=== PATIENT | female | born 1990 | race Hispanic/Latino ===

== ENCOUNTER 2016-12-04 19:43 | Emergency (ER) | payer BC, OTHER ==
[~2016-12-04] VITALS: Ht 154.9 cm; Wt 58.1 kg
[~2016-12-04 19:43] MED LIST: DOXY100C42 PO; HYDR-1231 PO; HYDR1TAB PO; METH4TAB PO; NITR-65 PO; OMEP-10 PO; PHEN200T27 PO; PNT40TEC PO; SCR1T1 PO; SULF-222 PO; TRAM50TA2 PO
[2016-12-04] MEDS ORDERED: ONDA4TAB11 (20:10)
[2016-12-04] MEDS ORDERED: NEXIUM (20:10)
[2016-12-04 20:18] LABS: BILIRUBIN,URINE NEGATIVE (NEGATIVE); KETONES,URINE NEGATIVE (NEGATIVE); LEUKOCYTE ESTERASE ,URINE NEGATIVE (NEGATIVE); NITRITE,URINE NEGATIVE (NEGATIVE); PH,URINE 6 (5-9); PROTEIN,URINE NEGATIVE (NEGATIVE); UROBILINOGEN,URINE NORMAL (NORMAL)
--- NOTE | 2016-12-04 20:19 | ED Abdominal Pain ---
General Chief Complaint: Abdominal/GI Problems Stated Complaint: ABD PAIN Nursing Triage Note: AWOKE THIS AM NAUSEATED AND THEN VOMITED, ABD PAIN STARTED AFTER THIS. PAIN IN UPPER EPIGASTRIC AND AND EXTENDS TO LUQ. SAW DR KC THIS AM, RX ZOFRAN AND F/U FRIDAY. PT TRIED TO EAT AND DRINK AND SX RESUMED Sepsis Screen: No Definite Risk Source of Information: Patient Exam Limitations: No Limitations History of Present Illness Time Seen By Provider: 20:19 Initial Comments 26 yo female patient presents to the ED with c/o nausea and vomiting beginning this AM. Does c/o epigastric pain radiating to the LUQ. Patient was seen by Dr. Kc earlier this a.m. and was given Zofran. Follow-up with Dr. Dr. Kc scheduled for Friday. Patient reports today no improvement in symptoms with Zofran. Denies taking Tylenol or ibuprofen at home. Unable to keep anything down today. Timing/Duration: 12 Hours Severity/Quality: Aching, Cramping Location: Epigastric Radiation: LUQ Activities at Onset: None Modifying Factors: Worsens With Eating, Worsens With Movement, Worsens With Palpation Allergies and Home Medications Allergies Coded Allergies: No Known Drug Allergies (Unverified , 05/05/13) Home Medications (Reported) Famotidine 20 Mg Tablet #20 20 MG PO BID PRN PRN NAUSEA/VOMITING Prescribed by: INOCENCIO CHI on 12/04/162118 Ondansetron 4 Mg Tab.rapdis #15 (Reported) Tramadol HCl 50 Mg Tablet #14 50 MG PO Q4H PRN PRN PAIN Prescribed by: INOCENCIO CHI on 12/04/162126 Review of Systems Constitutional: No diaphoresis, No dizziness, No fever, malaise EENTM: No Symptoms Reported Respiratory: Denies Cough, Denies Shortness of Air Cardiovascular: No Symptoms Reported Gastrointestinal: See HPIDenies Abdomen Distended, Abdominal PainDenies Blood Streaked Stools, Denies Constipated, Denies Diarrhea, Nausea Poor Appetite Poor Fluid IntakeDenies Rectal Bleeding, Vomiting Genitourinary: Denies Burning, Denies Discharge, Denies Frequency, Denies Flank Pain, Denies Hematuria, Denies Pain Musculoskeletal: no symptoms reported Skin: no symptoms reported Psychiatric/Neurological: No Symptoms Reported All Other Systems Reviewed Negative Unless Noted: Yes (Negative excepted noted.) Past Imwqmpf-Dgtvsw-Ailxgs Hx Patient Social History Alcohol Use: Denies Use Recreational Drug Use: No Smoking Status: Never a Smoker 2nd Hand Smoke Exposure: No Recent Foreign Travel: No Contact w/Someone Who Travel: No Recent Infectious Disease Expo: No Recent Hopitalizations: No Seasonal Allergies Seasonal Allergies: No Surgeries HX Surgeries: Yes (CYST REMOVED FROM BREAST, CYST REMOVED FROM ARM) Surgeries: Gallbladder, Orthopedic Respiratory Hx Respiratory Disorders: No Cardiovascular Hx Cardiac Disorders: No Neurological Hx Neurological Disorders: Yes Neurological Disorders: Headaches /Migraines Reproductive System : No Hx Reproductive Disorders: No Sexually Transmitted Disease: No Female Reproductive Disorders: Denies Genitourinary Hx Genitourinary Disorders: No Gastrointestinal Hx Gastrointestinal Disorders: Yes Gastrointestinal Disorders: Gastroesophageal Reflux Musculoskeletal Hx Musculoskeletal Disorders: No Endocrine Hx Endocrine Disorders: No HEENT HX ENT Disorders: No Cancer Hx Cancer: No Psychosocial Hx Psychiatric Problems: No Integumentary HX Skin/Integumentary Disorder: No Blood Transfusions Hx Blood Disorders: No Reviewed Nursing Assessment Reviewed/Agree w Nursing PMH: Yes Family Medical History Significant Family History: No Pertinent Family Hx Physical Exam Vital Signs VS - Last 72 Hours, by Label 12/04/16 12/04/16 12/04/16 19:50 21:38 22:00 Temp 98.8 98.8 98.8 Pulse 102 80 Resp 20 20 B/P 104/65 Pulse Ox 99 96 O2 Delivery Room Air Capillary Refill : Less Than 3 Seconds General Appearance: WD/WN no apparent distress HEENT: PERRL/EOMI pharynx normal Neck: supple normal inspection Respiratory: lungs clear normal breath sounds no respiratory distress Cardiovascular: no murmur tachycardia Gastrointestinal: normal bowel sounds soft no organomegalyNo distended, guarding (LUQ)No rebound, tenderness (epigastric and LUQ.) Extremities: normal inspection normal capillary refill Back: normal inspection no CVA tenderness Neurologic/Psychiatric: alert normal mood/affect oriented x 3 Skin: normal color warm/dry Progress/Results/Core Measures Results/Orders Lab Results Laboratory Tests Test 12/04/16 20:05 12/04/16 20:44 Range/Units Urine Bacteria TRACE /HPF Urine Bilirubin NEGATIVE NEGATIVE Urine Casts NONE /LPF Urine Clarity CLEAR Urine Color YELLOW Urine Crystals NONE /LPF Urine Culture Indicated NO Urine Glucose (UA) NEGATIVE NEGATIVE Urine Ketones NEGATIVE NEGATIVE Urine Leukocyte Esterase NEGATIVE NEGATIVE Urine Mucus NEGATIVE /LPF Urine Nitrite NEGATIVE NEGATIVE Urine Protein NEGATIVE NEGATIVE Urine RBC NONE /HPF Urine RBC (Auto) NEGATIVE NEGATIVE Urine Specific Lamar 1.015 L 1.016-1.022 Urine Squamous Epithelial Cells 10-25 H /HPF Urine Urobilinogen NORMAL NORMAL MG/DL Urine WBC 0-2 /HPF Urine pH 6 5-9 Alanine Aminotransferase (ALT/SGPT) 37 0-55 U/L Albumin 4.1 3.2-4.5 G/DL Alkaline Phosphatase 67 40-136 U/L Anion Gap 10 5-14 MMOL/L Aspartate Amino Transf (AST/SGOT) 30 5-34 U/L BUN/Creatinine Ratio 8 Basophils # (Auto) 0.0 0.0-0.1 10^3/uL Basophils (%) (Auto) 0 0-10 % Blood Urea Nitrogen 6 L 7-18 MG/DL Calcium Level 8.3 L 8.5-10.1 MG/DL Carbon Dioxide Level 24 21-32 MMOL/L Chloride Level 104 98-107 MMOL/L Creatinine 0.72 0.60-1.30 MG/DL Eosinophils # (Auto) 0.0 0.0-0.3 10^3/uL Eosinophils (%) (Auto) 1 0-10 % Estimat Glomerular Filtration Rate > 60 Glucose Level 92 70-105 MG/DL Hematocrit 41 35-52 % Hemoglobin 13.8 11.5-16.0 G/DL Lipase 19 8-78 U/L Lymphocytes # (Auto) 0.6 L 1.0-4.0 X 10^3 Lymphocytes (%) (Auto) 10 L 12-44 % Mean Corpuscular Hemoglobin 30 25-34 PG Mean Corpuscular Hemoglobin Concent 34 32-36 G/DL Mean Corpuscular Volume 90 80-99 FL Mean Platelet Volume 10.2 7.4-10.4 FL Monocytes # (Auto) 0.3 0.0-1.0 X 10^3 Monocytes (%) (Auto) 6 0-12 % Neutrophils # (Auto) 4.9 1.8-7.8 X 10^3 Neutrophils (%) (Auto) 83 H 42-75 % Platelet Count 226 130-400 10^3/uL Potassium Level 4.2 3.6-5.0 MMOL/L Red Blood Count 4.55 4.35-5.85 10^6/uL Red Cell Distribution Width 12.3 10.0-14.5 % Sodium Level 138 135-145 MMOL/L Total Bilirubin 0.4 0.1-1.0 MG/DL Total Protein 7.1 6.4-8.2 G/DL White Blood Count 5.9 4.3-11.0 10^3/uL My Orders Orders-INOCENCIO CHI Urine Bedside (12/04/16 20:12) Ua Culture If Indicated (12/04/16 20:12) Saline Lock/Iv-Start (12/04/16 20:12) Saline Lock/Iv-Start (12/04/16 20:24) Cbc With Automated Diff (12/04/16 20:24) Comprehensive Metabolic Panel (12/04/16 20:24) Lipase (12/04/16 20:24) Ondansetron Injection (Zofran Injectio (12/04/16 20:30) Ketorolac Injection (Toradol Injection) (12/04/16 20:24) Ns Iv 1000 Ml (Sodium Chloride 0.9%) (12/04/16 20:24) Fentanyl Injection (Sublimaze Injection (12/04/16 21:27) Medications Given in ED Vital Signs/I&O Vital Sign - Last 12Hours 12/04/16 12/04/16 12/04/16 19:50 21:38 22:00 Temp 98.8 98.8 98.8 Pulse 102 80 Resp 20 20 B/P 104/65 Pulse Ox 99 96 O2 Delivery Room Air Blood Pressure Mean: 78 Departure Communication Progress Notes 2114 all laboratory findings discussed with the patient. Patient reports she is feeling much better after medications and IV fluids given in the emergency department. Abdomen shows improved tenderness, nondistended, positive bowel sounds. Patient is alert and oriented 3, no acute distress. Patient does not wish to have any further testing done in the emergency department at this time and wishes to follow-up with her primary care physician on Friday as previously scheduled. Plan for discharge to home with follow-up as an outpatient with her primary care physician as previously scheduled. This examiner notified by nursing staff that patient had increased pain with the fentanyl. Upon this examiner entering the room patient reports increased epigastric pain and "feels like a cramp". After approximately 2-3 minutes pain resolves. Patient wishes to proceed with discharge to home. Dr. Jarad Kilpatrick notified of this. Impression Impression: Primary Impression: Abdominal pain Qualified Code: R10.13 - Epigastric pain Additional Impression: Nausea & vomiting Qualified Code: R11.2 - Nausea with vomiting, unspecified Disposition: HOME, SELF-CARE Condition: Improved Departure-Patient Inst. Decision time for Depature: 21:19 Referrals: SAULO KC DO (PCP/Family) Primary Care Physician Patient Instructions: Acute Abdomen (Belly Pain), Adult (DC), Nausea and Vomiting, Adult (DC) Add. Discharge Instructions: All discharge instructions reviewed with patient and/or family. Voiced understanding. Continue Zofran as instructed. Tylenol extra strength over-the- counter as directed for pain. Ibuprofen 600 mg by mouth every 8 hours as needed for pain. Clear liquid diet until symptoms improve, then increase diet slowly to a low-fat, bland diet. Follow-up with Dr. Kc for recheck as previously scheduled. Return to the emergency department for worsened pain, vomiting, vomiting blood, black stools, rectal bleeding, or any other concerns. Scripts Tramadol HCl 50 Mg [id number] Mg PO Q4H PRN PAIN #14 TAB Ref 0 Prov:INOCENCIO CHI 12/04/16 Famotidine (Pepcid)20 Mg [id number] Mg PO BID PRN NAUSEA/VOMITING #20 TAB Ref 0 Prov:INOCENCIO CHI 12/04/16 Work/School Note: Work Release Form Date Seen in the Emergency Department: Dec 04, 2016 Return to Work: Dec 05, 2016 Restrictions: Return-No Vomiting(24hrs) INOCENCIO CHI Dec 04, 2016 20:19 INOCENCIO CHI Dec 04, 2016 20:19
[2016-12-04] MEDS ORDERED: KETOROLAC 30 MG/ML VIAL IVP STA (20:24)
[2016-12-04] MEDS ORDERED: NS IV 1000 ML 1,000 ML IV ONE (20:24)
[2016-12-04 20:27] LABS: WBC,URINE 0-2 /HPF
[2016-12-04] MEDS ORDERED: ONDANSETRON 4 MG/2 ML (SDV) Z0FRAN IVP ONE (20:30)
[2016-12-04 20:53] LABS: BASOPHILS % (AUTO) 0 % (0-10); EOSINOPHILS % (AUTO) 1 % (0-10); LYMPHOCYTES # (AUTO) 0.6 X 10^3 (1.0-4.0); LYMPHOCYTES % (AUTO) 10 % (12-44); MEAN CORPUSCULAR HEMOGLOBIN 30 PG (25-34); MEAN CORPUSCULAR HGB CONC 34 G/DL (32-36); MEAN CORPUSCULAR VOLUME 90 FL (80-99); MEAN PLATELET VOLUME 10.2 FL (7.4-10.4); MONOCYTES # (AUTO) 0.3 X 10^3 (0.0-1.0); MONOCYTES % (AUTO) 6 % (0-12); NEUTROPHILS # (AUTO) 4.9 X 10^3 (1.8-7.8); NEUTROPHILS % (AUTO) 83 % (42-75); PLATELET COUNT 226 10^3/uL (130-400); RED BLOOD COUNT 4.55 10^6/uL (4.35-5.85); RED CELL DISTRIBUTION WIDTH 12.3 % (10.0-14.5); WHITE BLOOD COUNT 5.9 10^3/uL (4.3-11.0)
[2016-12-04 21:13] LABS: ALANINE AMINOTRANSFERASE 37 U/L (0-55); ALBUMIN 4.1 G/DL (3.2-4.5); ANION GAP 10 MMOL/L (5-14); ASPARTATE AMINO TRANSFERASE 30 U/L (5-34); BILIRUBIN,TOTAL 0.4 MG/DL (0.1-1.0); BLOOD UREA NITROGEN 6 MG/DL (7-18); BUN/CREATININE RATIO 8; CALCIUM 8.3 MG/DL (8.5-10.1); CARBON DIOXIDE 24 MMOL/L (21-32); CHLORIDE 104 MMOL/L (98-107); CREATININE SERUM 0.72 MG/DL (0.60-1.30); GFR ESTIMATED > 60; GLUCOSE 92 MG/DL (70-105); LIPASE 19 U/L (8-78); POTASSIUM 4.2 MMOL/L (3.6-5.0); SODIUM 138 MMOL/L (135-145); TOTAL PROTEIN 7.1 G/DL (6.4-8.2)
[2016-12-04] MEDS ORDERED: FAMO-119 PO (21:19)
[2016-12-04] MEDS ORDERED: TRAM50TA2 PO (21:27)
[2016-12-04] MEDS ORDERED: fentaNYL INJECTION 100 MCG/2 ML AMP IVP STA (21:27)
[2016-12-04 22:00] VITALS: BP 96/58
== END 2016-12-04 22:00 | disposition home or self-care (01) ==
LOC: EDUNIT# 19:43 → ER 19:45
DX: R10.12 Left upper quadrant pain (principal); R11.2 Nausea with vomiting, unspecified
CPT/HCPCS: 36415; 80053; 81000; 83690; 84703; 85025; 96365; 96375

== ENCOUNTER → 2017-09-15 | Outpatient (CLI) | payer OTHER ==
[~2017-09-15] MED LIST changes: +FAMO-119 PO; +NEXIUM; +ONDA4TAB11
== END ==
LOC: LAB 12:33
PROVIDERS: ATTEND Family Medicine
DX: B35.1 Tinea unguium (principal)
CPT/HCPCS: 87220